=== PATIENT | male | born 1950 | race Caucasian/White ===

== ENCOUNTER 2024-04-07 07:22 | Outpatient (CLI) | payer MEDICARE, BC, SELFPAY ==
--- NOTE | 2024-04-07 08:22 | P.ANES_ITS ---
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
--- NOTE | 2024-04-07 08:22 | W.ANESCHARGE ---
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
--- NOTE | 2024-04-07 08:39 | P.ANES_ITS ---
Anesthesia Charges Start Date/Time Anesthesia Start Date: 04/07/24 Anesthesia Start Time: 07:50 Stop Date/Time Anesthesia Stop Date: 04/07/24 Anesthesia Stop Time: 08:21 Summary Extremes of Age - Over 70 or under 1: MDA Coding CPT Codes CPT Codes: YUE LWR INTST SCR COLSC - 00654 ([id number]) P1 - NORMAL HEALTHY PATIENT, QK - BED SPRING MAKER 2-4 CNCRNT ANES PROC, QX - HOSPITALIST MEDICAL DIRECTOR SVC W/ MD MED DIRECTION Additional Codes: Summary - Extremes of Age - Over 70 or under 1: MDA ([id number])
--- NOTE | 2024-04-07 08:39 | W.ANESCHARGE ---
Anesthesia Charges Start Date/Time Anesthesia Start Date: 04/07/24 Anesthesia Start Time: 07:50 Stop Date/Time Anesthesia Stop Date: 04/07/24 Anesthesia Stop Time: 08:21 Summary Extremes of Age - Over 70 or under 1: MDA Coding CPT Codes CPT Codes: YUE LWR INTST SCR COLSC - 19975 ([id number]) P1 - NORMAL HEALTHY PATIENT, QK - PRESIDENT CELEBRITY ACQUISTION 2-4 CNCRNT ANES PROC, QX - INTERNAL AUDIT DIRECTOR SVC W/ MD MED DIRECTION Additional Codes: Summary - Extremes of Age - Over 70 or under 1: MDA ([id number])
== END 2024-04-07 07:23 | disposition home or self-care (01) ==
PROVIDERS: PCP Surgery; Visit Provider Internal Medicine Gastroenterology
DX: Z12.11 Encounter for screening for malignant neoplasm of colon (principal); D12.2 Benign neoplasm of ascending colon; K64.8 Other hemorrhoids; Z86.0101 Personal history of adenomatous and serrated colon polyps
CPT/HCPCS: 00812; 45385; 99100; J2704